=== PATIENT | male | born 1970 | race Caucasian/White ===

== ENCOUNTER 2018-07-28 17:18 | Emergency (ER) | payer OTHER ==
[~2018-07-28] VITALS: Ht 185.4 cm; Wt 118.6 kg
[2018-07-28 17:22] VITALS: BP 183/105; PULSE 86; RESP 19; Ht 185.4 cm; Wt 118.6 kg
--- NOTE | 2018-07-28 20:27 | ERD ---
ER Documentation Chief Complaint Chief Complaint x 1 yr of worsening R sided facia skin irritation; (+)non-mobile lump noted HPI This is a 47-year-old male presents emergency department with complaints of right sided facial pain and swelling for about a year and got worse the last 10 days. Denies headache, head injury, loss of consciousness, dizziness, neck pain, neck stiffness, throat pain, difficulty swallowing, difficulty breathing lying flat, shoulder pain, chest pain, back pain, abdominal pain, nausea, vomiting, constipation, diarrhea, urinary symptoms, loss of bowel and bladder control, trauma, injury, falls, difficulty walking due to pain, numbness or tingling sensation, calf pain, recent travel, recent major surgery in the last 3 weeks, calf pain, recent long travel, recent exposure to any illness, recent antibiotic use in the last 3 months, fever, chills, seizures. Past medical history: Surgical history: Social: Denies smoking, use of alcoholic beverages, use of illegal drugs. ROS All systems reviewed and are negative except as per history of present illness. Medications Home Meds Active Scripts Ibuprofen* (Motrin*) 800 Mg Tab, 800 MG PO Q6H PRN for PAIN AND OR ELEVATED TEMP, #30 TAB Prov:PASILABAN,ADIAAR F 07/28/18 Cephalexin* (Keflex*) 500 Mg Capsule, 500 MG PO TID for 7 Days, CAP Prov:PASILABAN,KLAR F 07/28/18 Sulfamethoxazole/Trimethoprim* (Bactrim Ds* Tablet) 1 Each Tablet, 1 TAB PO BID for 7 Days, #14 TAB Prov:PASILABAN,KLAR F 07/28/18 Allergies Allergies: Coded Allergies: No Known Allergy (Unverified , 07/28/18) Physical Exam Vitals Physical Exam Const: No acute distress Head: Atraumatic Eyes: Normal Conjunctiva. Good eye movement. No periorbital swelling. No periorbital discoloration. No pain in eye movement. No signs of periorbital cellulitis. No signs of orbital cellulitis. ENT: Normal External Ears, Nose and Mouth. Bilateral ears: TMs are not erythematous. No bleeding. No discharge. No hearing loss. No mastoid tenderness. Nose: Unremarkable. Throat: Uvula is in midline and nondisplaced with tonsils are +1 bilaterally without redness without exudates. Tolerating secretions. Patent airway. Speaks full and clear sentences. Patent airway. Bilateral jaws: No discoloration. No swelling. Good and full range of motion. Neck: Full range of motion. No meningismus. No nuchal rigidity. No signs of meningeal irritation. Resp: Clear to auscultation bilaterally Cardio: Regular rate and rhythm, no murmurs Abd: Soft, non tender, non distended. Normal bowel sounds Skin: No petechiae or rashes. Preauricular area has a swelling that is measuring approximately 3 cm in diameter with redness and warm to touch. Mild fluctuance. Back: No midline or flank tenderness Ext: No cyanosis, or edema Neur: Awake and alert. No neurological deficits. Psych: Normal Mood and Affect Results 24 hrs Current Medications Medications Dose Sig/Wilfred Start Time Status Last (Trade) Ordered Route PRN Stop Time Admin Dose Reason Admin 1 tab ONCE ONCE 07/28/18 DC Acetaminophen PO 20:30 / 07/28/18 20:31 Hydrocodone Bitart (Kechi (10/325)) Lidocaine 20 ml ONCE ONCE 07/28/18 DC (Xylocaine SC 22:30 1% (Mdv) 20 07/28/18 22:31 ml) Procedures/MDM This case was discussed with my supervising physician, Dr. Vandana Puri who agreed with my medical decision making. Diagnostic tests: Ultrasound of the soft tissue: 2 cm right facial abscess. Treatment: Kechi p.o. Procedure: Incision and drainage of abscess to right side of the face. Sterile technique was observed. Betadine prep. Lidocaine 1% 1.5 cc subcu. Incised with scalpel. Drained mucopurulent discharge. Packing was applied. Dressing was applied by EMT. Re-evaluation: No active bleeding. Color appears normal for ethnicity. No neurological deficits. Stated that he feels much better at this time and that they are ready to go home. Differential diagnosis I have low suspicion for sepsis, meningitis, mastoiditis, angioedema Final diagnosis: Abscess with incision and drainage Prescription: Bactrim. Keflex. Motrin. Follow-up with PCP in the next 24-48 hours. Come back in 2 days for wound check. Come back here in the emergency department for any new symptoms or any worsening symptoms. All questions and concerns were answered. Patient and family members verbalized understanding and agreed with plan of care. Hemodynamically stable on discharge. Departure Diagnosis: Primary Impression: Acute abscess Additional Impression: Abscess Condition: Stable Additional Instructions: Follow-up with PCP in the next 24-48 hours. Come back in 2 days for wound check. Come back here in the emergency department for any new symptoms or any worsening symptoms. PRAVEEN SORIA Jul 28, 2018 20:27
[2018-07-28] MEDS ORDERED: HYDROCODONE/APAP (10/325) TAB PO ONE (20:30)
[2018-07-28] MEDS ORDERED: SULF1TAB31 PO (21:13)
[2018-07-28] MEDS ORDERED: IBUP800T48 PO (21:14)
[2018-07-28] MEDS ORDERED: CEPH-443 PO (21:14)
[2018-07-28] MEDS ORDERED: LIDOCAINE 1% (MDV) 20 ML INJ SC ONE (22:30)
== END 2018-07-28 22:46 | disposition home or self-care (01) ==
LOC: FTE 17:18
DX: L02.01 Cutaneous abscess of face (principal)
CPT/HCPCS: 10060; 76536; Z7502

== ENCOUNTER 2018-07-31 09:28 | Emergency (ER) | payer OTHER ==
[~2018-07-31] VITALS: Ht 185.4 cm; Wt 120.8 kg
[~2018-07-31 09:28] MED LIST: CEPH-443 PO; IBUP800T48 PO; SULF1TAB31 PO
[2018-07-31 09:35] VITALS: BP 170/98; PULSE 75; RESP 18; Ht 185.4 cm; Wt 120.8 kg
--- NOTE | 2018-07-31 10:18 | ERD ---
ER Documentation Chief Complaint Chief Complaint for wound check on rt side of face HPI 47-year-old male presenting for wound check on his right face. Patient had an abscess that was drained. He is on antibiotics. He has had no fevers. States that the wound is improving. Denies medical problems. NKDA. Surgical history is shoulder surgery. Social history denies ROS All systems reviewed and are negative except as per history of present illness. Medications Home Meds Active Scripts Ibuprofen* (Motrin*) 800 Mg Tab, 800 MG PO Q6H PRN for PAIN AND OR ELEVATED TEMP, #30 TAB Prov:PASILABAN,KLAR F 07/28/18 Cephalexin* (Keflex*) 500 Mg Capsule, 500 MG PO TID for 7 Days, CAP Prov:PASILABAN,KLAR F 07/28/18 Sulfamethoxazole/Trimethoprim* (Bactrim Ds* Tablet) 1 Each Tablet, 1 TAB PO BID for 7 Days, #14 TAB Prov:PASILABAN,KLAR F 07/28/18 Allergies Allergies: Coded Allergies: No Known Allergy (Unverified , 07/28/18) PMhx/Soc Medical and Surgical Hx: pt denies Medical Hx, pt denies Surgical Hx Hx Alcohol Use: No Hx Substance Use: No Hx Tobacco Use: No Smoking Status: Never smoker FmHx Family History: No diabetes, No coronary disease, No other Physical Exam Vitals Vital Signs Date Temp Pulse Resp B/P (MAP) Pulse Ox O2 O2 Flow FiO2 Time Delivery Rate 07/31/18 98.1 75 18 170/98 98 09:35 (122) Physical Exam GENERAL: The patient is well-appearing, well-nourished, in no acute distress HEENT: Atraumatic. Conjunctivae are pink. Pupils equal, round, and reactive to light. There is no scleral icterus. Tympanic membranes clear bilaterally. Oropharynx clear. CHEST: Clear to auscultation bilaterally. There are no rales, wheezes or rhonchi. HEART: Regular rate and rhythm. No murmurs, clicks, rubs or gallops. SKIN: Healing abscess noted to the right side of face with mild discharge. Procedures/MDM MDM: 47-year-old male presenting for wound check. Patient's abscess appears to be healing appropriately. I have low suspicion for deep tracking abscess. I have low suspicion for sepsis. Patient is discharged with strict ER precautions and told to follow-up with primary care within 1-2 days for close evaluation. Patient is told if symptoms change or worsen to return immediately to the ER. All questions answered at discharge Departure Diagnosis: Primary Impression: Encounter for wound re-check Condition: Stable Patient Instructions: Wound Care Referrals: COMM[facility]ITY CL[facility] YOU HAVE RECEIVED A MEDICAL SCREENING EXAM AND THE RESULTS INDICATE THAT YOU DO NOT HAVE A CONDITION THAT REQUIRES URGENT TREATMENT IN THE EMERGENCY DEPARTMENT. FURTHER EVALUATION AND TREATMENT OF YOUR CONDITION CAN WAIT UNTIL YOU ARE SEEN IN YOUR DOCTORS OFFICE WITHIN THE NEXT 1-2 DAYS. IT IS YOUR RESPONSIBILITY TO MAKE AN APPOINTMENT FOR FOLOW-UP CARE. IF YOU HAVE A PRIMARY DOCTOR --you should call your primary doctor and schedule an appointment IF YOU DO NOT HAVE A PRIMARY DOCTOR YOU CAN CALL OUR PHYSICIAN REFERRAL HOTLINE AT IF YOU CAN NOT AFFORD TO SEE A PHYSICIAN YOU CAN CHOSE FROM THE FOLLOWING THE [facility] [address] [facility] [address] [facility] [address] [facility] [address] [facility] [address] [facility] [facility]. [address] Additional Instructions: FOLLOW UP WITH YOUR PRIMARY CARE PHYSICIAN TOMORROW.Return to this facility if you are not improving as expected. TEQUILA IBRAHIM PA-C Jul 31, 2018 10:18
== END 2018-07-31 10:10 | disposition home or self-care (01) ==
LOC: FTE 09:28
DX: Z48.01 Encounter for change or removal of surgical wound dressing (principal)
CPT/HCPCS: 99281